=== PATIENT | female | born 1945 | race Caucasian/White ===

== ENCOUNTER 2025-08-14 09:15 | Outpatient (AMB) | payer MEDICARE, SELFPAY ==
--- NOTE | 2025-08-14 09:35 | MHC.PC.OV ---
Vital Signs 08/14/25 09:49 Height 5 ft 5 in Weight 177 lb 4 oz BMI 29.5 BP 120/60 Blood Pressure Location Rt brachial Position Sitting Respiration 15 Pulse 59 Pulse Source Pulse Oximeter Temp 97.9 F Temp Source Temporal Artery Scan Pulse Oximetry (%) 95 Oxygen Delivery Method Room Air Intake Visit Reasons: AWV Intake Note: Riri presents in the office today to establish care. 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 Is last menstrual period known: No Post menopausal: Yes Patient : No Allergies Penicillins Allergy (Mild, Verified 08/14/25 09:47) Rash Tobacco use date assessed: 08/14/25 Fall risk assessment: 1 Fall in past year Last assessed Fall Risk: 08/14/25 Dental Screening Dental Screen Date: 08/14/25 Did you have a dental visit in the last 12 months?: No Did you have a dental problem in the last 6 months where you did not have access to dental care?: No Was dental information given to patient?: Patient declined HPI HPI Comments History of Present Illness Details This is an 80 year old female with HLD, HTN, Raynaud's, OA, prediabetes, left breast cancer in remission and Parkinsons presenting to establish care. She does not have a medication list or medical records available today, but she says she is treated with Metoprolol, Lisinopril, Chlorthalidone and Atorvastatin. Nonsmoker. No alcohol. Left breast cancer -2009, [place], [place] -treated with lumpectomy and radiation -negative BRCA, per pt Followed annually at [facility], reports mammo is UTD Parkinsons -On Neupro patch and carbidopa-levodopa -attends support group -needs referral to neurology Due for bone density test. Requested [facility]. She has done colonoscopy, discontinued screening due to age. Left knee OA -Uses Walker - Seen at [facility] and had gel and cortisone injection - Managing okay for now She will get flu and COVID vaccine at the pharmacy. ROS: Constitutional: No fevers or chills Respiratory: No shortness of breath Cardiovascular: No chest pain Gastrointestinal: No abdominal pain Neurologic: No headache or syncope Psychiatric: No depression or anxiety. Physical exam: Constitutional: Alert, in no distress. Ear, Nose and Throat: Canals clear. TMs normal. Normal nasal mucosa. No nasal discharge. No oral lesions. Neck: Supple, Full range of motion. No lymphadenopathy. No palpable thyroid masses. Respiratory: Clear to auscultation. Cardiovascular: S1 S2 regular. No murmurs. Psychiatric: Normal mood and affect [facility] Medical History (Updated 08/15/25 @ 14:39 by CASS Michaels) Osteoarthritis of left knee Raynaud phenomenon History of left breast cancer Essential hypertension Pure hypercholesterolemia Prediabetes Parkinsons Social History (Updated 08/14/25 @ 09:49 by Rahel Mota CMA) Alcohol intake: never Patient Tobacco Use Status: Never used Tobacco e-Cigarette/Vaping Use: Never Used Second Hand Smoke Exposure: Yes service: No Current occupational status: retired Current occupational exposures/hazards: No Cognitive needs: No Hearing needs: No Vision needs: No Questionnaire PHQ-9 Over the last 2 weeks, how often have you been bothered by any of the following problems? 1. Little interest or pleasure in doing things: not at all 2. Feeling down, depressed, or hopeless: not at all 3. Trouble falling or staying asleep, or sleeping too much: not at all 4. Feeling tired or having little energy: not at all 5. Poor appetite or overeating: not at all 6. Feeling bad about yourself - or that you are a failure or have let yourself or your family down: not at all 7. Trouble concentrating on things, such as reading the newspaper or watching television: not at all 8. Moving or speaking so slowly that other people could have noticed. Or the opposite - being so fidgety or restless that you have been moving around a lot more than usual: not at all 9. Thoughts that you would be better off or of hurting yourself in some way: not at all Total score: 0 Depression Screening Interpretation: Negative Depression Screening Done: Yes 20081 - PHQ-9 Billing: Yes Source: Developed by Drs. Amor Fagan, Senait Aguila, John Cullen and colleagues, with an educational emily from [email or web address]. Thrive Questionnaire Date Thrive assessed: 08/14/25 I am a: Patient What is your living situation today?: I have a steady place to live Within the past 12 months, did the food you bought not last and you didn't have the money to get more?: Never true Within the past 12 months, did you worry whether your food would run out before you got money to buy more?: Never true Do you have trouble paying for medicines?: No Do you have trouble getting transportation to medical appointments?: No Do you have trouble paying your heating and electricity bill?: No Do you have trouble taking care of your child, family member or friend?: No Do you have trouble with day-to-day activities such as bathing, preparing meals, shopping, managing finances, etc.?: No Are you currently unemployed and looking for a job?: No Are you interested in more education?: No Please select the resources that you would like help with: Transportation Currently or been in a relationship where the following occur: No concerns reported THRIVE Score: 0 AUDIT C Alcohol Use Questionnaire (AUDIT-C) 1. How often do you have a drink containing alcohol?: Never 3. How often do you have six or more drinks on one occasion?: Never Total Score: 0 AYUSH-7 AMB Questionnaire AYUSH-7 Date AYUSH - 7 assessed: 08/14/25 Feeling nervous, anxious, or on edge: 0 = Not at all Not being able to stop or control worryin = Not at all Worrying too much about different things: 0 = Not at all Trouble relaxin = Not at all Being so restless that it is hard to sit still: 0 = Not at all Becoming easily annoyed or irritable: 0 = Not at all Feeling afraid as if something awful might happen: 0 = Not at all Total AYUSH-7 score (0-4 normal; 5-9 mild; 10-14 moderate; 15-21 severe): 0 Source: Developed by Drs. Amor Fagan, Senait Aguila, John Cullen and colleagues, with an educational emily from [email or web address]. AYUSH-7 Assessment Billing AYUSH-7 Assessment Tool: AYUSH-7 Assessment 76823 Physical exam (Primary Care) Vital Signs: Last Vital Signs Temp 97.9 F 08/14/25 09:49 Pulse 59 08/14/25 09:49 Resp 15 08/14/25 09:49 BP 120/60 08/14/25 09:49 Pulse Ox 95 08/14/25 09:49 Oxygen Delivery Method Room Air 08/14/25 09:49 BMI result Body Mass Index 29.5 Tobacco/Smoking Status: Tobacco use Status Tobacco use date assessed 08/14/25 08/14/25 09:57 Patient Tobacco Use Status Never used Tobacco 08/14/25 09:57 e-Cigarette/Vaping Use Never Used 08/14/25 09:57 PHQ-9: PHQ-9 Score PHQ-9: Total score 0 08/14/25 10:34 Depression Screening Interpretation: Negative Thrive Assessment: Date of Thrive Assessment Date Thrive assessed 08/14/25 08/14/25 09:36 Currently or been in a relationship where the following occur: No concerns reported Coding Level of Care Code New Pt Level 4 (39290) Add On Problem Visit Only Diagnoses Parkinson's disease, unspecified whether dyskinesia present, unspecified whether manifestations fluctuate G20.A1 Dyskinesia presence: unspecified whether dyskinesia Fluctuating manifestations: unspecified whether manifestations fluctuate Prediabetes R73.03 Pure hypercholesterolemia E78.00 Essential hypertension I10 History of left breast cancer Z85.3 Additional Codes AYUSH-7 Assessment Billing - AYUSH-7 Assessment Tool: AYUSH-7 Assessment 17607 ([id number]) PHQ-9 - 07602 - PHQ-9 Billing: Yes ([id number]) Assessment & Plan Assessment & Plan (1) Parkinsons: Code(s): G20.A1 - Parkinson's disease without dyskinesia, without mention of fluctuations Category: Medical Qualifiers: Dyskinesia presence: unspecified whether dyskinesia Fluctuating manifestations: unspecified whether manifestations fluctuate Qualified Code(s): G20.A1 - Parkinson's disease without dyskinesia, without mention of fluctuations Plan: Neuro referral placed. Attends support group. Refiled medications. (2) Prediabetes: Code(s): R73.03 - Prediabetes Category: Medical Plan: Check a1c. (3) Pure hypercholesterolemia: Code(s): E78.00 - Pure hypercholesterolemia, unspecified Category: Medical Plan: Continue Atorvastatin. (4) Essential hypertension: Code(s): I10 - Essential (primary) hypertension Category: Medical Plan: Continue current medications. (5) History of left breast cancer: Code(s): Z85.3 - Personal history of malignant neoplasm of breast Category: Medical Plan: Followed by [facility]. Plan Follow up in 6 months. Orders: Orders Lipid Panel 12/03/25 E78.00 - Pure hypercholesterolemia, unspecified, E78.5 - Hyperlipidemia, unspecified, G20.A1 - Parkinson's disease without dyskinesia, without mention of fluctuations, R73.03 - Prediabetes Vitamin B12 12/03/25 E78.00 - Pure hypercholesterolemia, unspecified, G20.A1 - Parkinson's disease without dyskinesia, without mention of fluctuations, R73.03 - Prediabetes, Z91.89 - Other specified personal risk factors, not elsewhere classified Hemoglobin A1c 12/03/25 E78.00 - Pure hypercholesterolemia, unspecified, G20.A1 - Parkinson's disease without dyskinesia, without mention of fluctuations, R73.03 - Prediabetes, R73.9 - Hyperglycemia, unspecified Complete Blood Count no Diff 12/03/25 E7.00 - Pure hypercholesterolemia, unspecified, G20.A1 - Parkinson's disease without dyskinesia, without mention of fluctuations, R73.03 - Prediabetes Comprehensive Met. Panel 12/03/25 E7.00 - Pure hypercholesterolemia, unspecified, G20.A1 - Parkinson's disease without dyskinesia, without mention of fluctuations, R73.03 - Prediabetes Vitamin D 25-OH (D2 and D3) 12/03/25 E78.00 - Pure hypercholesterolemia, unspecified, G20.A1 - Parkinson's disease without dyskinesia, without mention of fluctuations, R73.03 - Prediabetes XR DEXA axial skeleton Today Z78.0 - Asymptomatic menopausal state Referrals Neurology Referral G20.A1 - Parkinson's disease without dyskinesia, without mention of fluctuations Medications: New carbidopa-levodopa 50-200 mg ER divide evenly over waking hours 1 tab PO .5 times daily 450 tabs 1RF 90 days atorvastatin (Lipitor) 10 mg PO BEDTIME 90 tabs 3RF rotigotine (Neupro) 6 mg transdermal Q24H 90 ea 1RF 90 days
[2025-08-14 09:49] VITALS: BP 120/60; PULSE 59; RESP 15; TEMP 36.6; O2SAT 95; BMI 29.5
== END 2025-08-14 10:52 | disposition home or self-care (01) ==
PROVIDERS: PCP Physician Assistant Medical; Visit Provider Physician Assistant Medical
DX: G20.A1 Parkinson's disease without dyskinesia, without mention of fluctuations (principal); R73.03 Prediabetes; E78.00 Pure hypercholesterolemia, unspecified; I10 Essential (primary) hypertension; Z85.3 Personal history of malignant neoplasm of breast

== ENCOUNTER → 2025-08-14 09:15 | Outpatient (BNVA) | payer MEDICARE, SELFPAY | PROVIDERS: PCP Physician Assistant Medical; Visit Provider Physician Assistant Medical | DX: G20.A1 Parkinson's disease without dyskinesia, without mention of fluctuations (principal); M17.12 Unilateral primary osteoarthritis, left knee; R73.03 Prediabetes; E78.00 Pure hypercholesterolemia, unspecified; I10 Essential (primary) hypertension; Z85.3 Personal history of malignant neoplasm of breast; Z13.31 Encounter for screening for depression; Z13.39 Encounter for screening examination for other mental health and behavioral disorders | CPT/HCPCS: 96127; 99202 ==